=== PATIENT | male | born 1990 | race Caucasian/White ===

== ENCOUNTER 2019-02-03 11:26 | Emergency (ER) | payer OTHER ==
[~2019-02-03] VITALS: Ht 175.3 cm; Wt 65.8 kg
[2019-02-03] MEDS ORDERED: CLINDAMYCIN PO (11:57)
[2019-02-03] MEDS ORDERED: NORCO 5-325 TA1 EAC2 PO (12:02)
[2019-02-03 12:10] VITALS: BP 132/87
== END 2019-02-03 12:10 | disposition home or self-care (01) ==
LOC: ER 11:26
DX: K02.9 Dental caries, unspecified (principal); F17.210 Nicotine dependence, cigarettes, uncomplicated; Z88.6 Allergy status to analgesic agent